=== PATIENT | male | born 1935 | race Caucasian/White ===

== ENCOUNTER → 2017-03-21 | Outpatient (CLI) | payer MEDICARE ==
[~2017-03-21] MED LIST: ANTIBIOTIC PO; ASPIRIN 81MG TA81 MG PO; FLEXERIL10 MG PO; JALYN 0.5 MG-0.1 CAP PO; JANUVIA50 MG PO; LANTUS INS100 UNITS/ SC; LISINOPRIL 20MG20 MG PO; LORTAB 500 MG-71 TAB PO; METRONIDAZOLE500 MG; MIRALAX17 GM/PACK PO; OXYCODONE CR10 MG PO; PRANDIN 1 MG TAB1 MG PO; STERAPRED DS10 MG PO; UNITHROID PO
== END ==
LOC: SL 20:17
DX: G47.33 Obstructive sleep apnea (adult) (pediatric) (principal)

== ENCOUNTER → 2017-04-19 | Outpatient (CLI) | payer MEDICARE | LOC: LAB 11:12 | DX: R19.7 Diarrhea, unspecified (principal) ==

== ENCOUNTER → 2017-05-12 | Outpatient (CLI) | payer MEDICARE ==
[~2017-05-12] MED LIST changes: +ATORVASTATIN CA20 MG PO; +BISOPROLOL FUMA10 MG PO; +CHLORTHALIDONE25 MG PO; +CLOPIDOGREL75 MG PO; +NOVOLOG FLEX100 U/ML SC
[2017-05-12 12:27] LABS: BUN 29 mg/dL (7-18)
[2017-05-12 12:30] LABS: GFR (ESTIMATED) 42 ML/MIN (>60)
== END ==
LOC: LAB 11:07
PROVIDERS: Internal Medicine
DX: I87.2 Venous insufficiency (chronic) (peripheral) (principal)